=== PATIENT | female | born 1970 | race American Indian/Alaskan Native ===

== ENCOUNTER 2019-01-13 09:48 | Emergency (ER) | payer MEDICARE ==
[2019-01-13 10:09] VITALS: BP 111/76
[2019-01-13] MEDS ORDERED: IBUPROFEN PO ONE (10:27)
--- NOTE | 2019-01-13 11:13 | XRay Report ---
LEFT FOOT 3 VIEW(S) INDICATION / CLINICAL INFORMATION: pain after a fall COMPARISON: None available. FINDINGS: BONES / JOINT(S): No acute fracture or subluxation. Old, healed fracture of the distal 5th metatarsal . SOFT TISSUES: No significant abnormality. ADDITIONAL FINDINGS: None. Signer Name: Anitha Kumar MD Signed: 01/13/2019 11:08 AM Workstation Name: [id number]
--- NOTE | 2019-01-13 11:15 | XRay Report ---
LEFT ANKLE 3 VIEW(S) INDICATION / CLINICAL INFORMATION: pain after fall COMPARISON: None available. FINDINGS: BONES / JOINT(S): No acute fracture or subluxation. Old, healed fractures of the distal left tibia an d fibula. No joint effusion. SOFT TISSUES: Mild lateral ankle soft tissue swelling. ADDITIONAL FINDINGS: None. Signer Name: Anitha Kumar MD Signed: 01/13/2019 11:10 AM Workstation Name: [id number]
--- NOTE | 2019-01-13 11:15 | XRay Report ---
LEFT KNEE 3 VIEW(S) INDICATION / CLINICAL INFORMATION: pain after fall COMPARISON: None available. FINDINGS: BONES / JOINT(S): No acute fracture or subluxation. No significant arthritis. No significant joint ef fusion. SOFT TISSUES: Mild prepatellar soft tissue swelling. ADDITIONAL FINDINGS: None. Signer Name: Anitha Kumar MD Signed: 01/13/2019 11:11 AM Workstation Name: [id number]
--- NOTE | 2019-01-13 11:48 | Emergency Department Report ---
ED Extremity Problem HPI - General Chief complaint: Fall Stated complaint: FALL Time Seen by Provider: 01/13/19 10:14 Source: patient Mode of arrival: Ambulatory Limitations: Physical Limitation - History of Present Illness Initial comments: Patient is a 48-year-old female who suffered a fall earlier today. Patient tripped and fell and her left leg got caught underneath her. Patient is complaining of left knee ankle and foot pain. Patient had a walking boot from previous injury and she put this on her which will allow her to walk. Patient states pain is 7 out of 10 in severity. There is no head injury and loss consciousness. Severity scale (0 -10): 8 - Related Data Previous Rx's Medication Instructions Recorded Last Taken Type Ibuprofen [Motrin 600 MG tab] 600 mg PO Q8H PRN #20 tablet 01/13/19 Unknown Rx traMADol [Ultram] 50 mg PO Q6HR PRN #12 tablet 01/13/19 Unknown Rx Allergies Allergy/AdvReac Type Severity Reaction Status Date / Time No Known Allergies Allergy Unverified 01/13/19 10:10 ED Review of Systems ROS: Stated complaint: FALL Other details as noted in HPI Comment: All other systems reviewed and negative ED Past Medical Hx - Past Medical History Hx Hypertension: Yes Hx Diabetes: Yes Additional medical history: Jad dis., High cholesterol - Surgical History Hx Appendectomy: Yes Additional Surgical History: Pituary gland, hysterectomy, open heart - Social History Smoking Status: Never Smoker Substance Use Type: Alcohol - Medications Home Medications: Home Medications Medication Instructions Recorded Confirmed Last Taken Type Ibuprofen [Motrin 600 MG tab] 600 mg PO Q8H PRN #20 tablet 01/13/19 Unknown Rx traMADol [Ultram] 50 mg PO Q6HR PRN #12 tablet 01/13/19 Unknown Rx ED Physical Exam - General Limitations: Physical Limitation General appearance: alert, in no apparent distress - Head Head exam: Present: atraumatic, normocephalic - Eye Eye exam: Present: normal appearance - ENT ENT exam: Present: mucous membranes moist - Neck Neck exam: Present: normal inspection - Respiratory Respiratory exam: Absent: respiratory distress, wheezes, rales, rhonchi - Cardiovascular Cardiovascular Exam: Absent: systolic murmur, diastolic murmur, rubs, gallop - GI/Abdominal GI/Abdominal exam: Present: soft, normal bowel sounds. Absent: distended, tenderness, guarding, rebound - Extremities Exam Extremities exam: Present: normal inspection, tenderness, joint swelling (left ankle and left knee). Absent: full ROM (secondary to pain) - Back Exam Back exam: Present: normal inspection - Neurological Exam Neurological exam: Present: alert, oriented X3 - Psychiatric Psychiatric exam: Present: normal affect, normal mood - Skin Skin exam: Present: warm, dry, intact, normal color. Absent: rash ED Course Vital Signs 01/13/19 01/13/19 10:03 10:36 Temperature 98.3 F Pulse Rate 86 Respiratory 18 18 Rate Blood Pressure 111/76 O2 Sat by Pulse 96 Oximetry ED Medical Decision Making - Radiology Data Ordering Physician: LANDY CHENEY MD Date of Service: 01/13/19 Procedure(s): XR knee 3V LT Accession Number(s): [id number] cc: LANDY CHENEY MD Fluoro Time In Minutes: LEFT KNEE 3 VIEW(S) INDICATION / CLINICAL INFORMATION: pain after fall COMPARISON: None available. FINDINGS: BONES / JOINT(S): No acute fracture or subluxation. No significant arthritis. No significant joint effusion. SOFT TISSUES: Mild prepatellar soft tissue swelling. ADDITIONAL FINDINGS: None. Signer Name: Anitha Kumar MD Signed: 01/13/2019 11:11 AM Workstation Name: [id number] Transcribed By: DT Dictated By: Kun Kumar MD Electronically Authenticated By: Kun Kumar MD Signed Date/Time: 01/13/[address] [place] [address] [address] [place] [address] XRay Report Signed Patient: ALMITA MOROCHO MR#: [id number] : 1970 Acct:[id number] Age/Sex: 48 / F ADM Date: 01/13/19 Loc: ED Attending Dr: Ordering Physician: LANDY CHENEY MD Date of Service: 01/13/19 Procedure(s): XR foot 3+V LT Accession Number(s): [id number] cc: LANDY CHENEY MD Fluoro Time In Minutes: LEFT FOOT 3 VIEW(S) INDICATION / CLINICAL INFORMATION: pain after a fall COMPARISON: None available. FINDINGS: BONES / JOINT(S): No acute fracture or subluxation. Old, healed fracture of the distal 5th metatarsal. SOFT TISSUES: No significant abnormality. ADDITIONAL FINDINGS: None. Signer Name: Anitha Kumar MD Signed: 01/13/2019 11:08 AM Workstation Name: [id number] Transcribed By: DT Dictated By: Kun Kumar MD Electronically Authenticated By: Kun Kumar MD Signed Date/Time: 01/13/19 1108 Ordering Physician: LANDY CHENEY MD Date of Service: 01/13/19 Procedure(s): XR ankle 3+V LT Accession Number(s): [id number] cc: LANDY CHENEY MD Fluoro Time In Minutes: LEFT ANKLE 3 VIEW(S) INDICATION / CLINICAL INFORMATION: pain after fall COMPARISON: None available. FINDINGS: BONES / JOINT(S): No acute fracture or subluxation. Old, healed fractures of the distal left tibia and fibula. No joint effusion. SOFT TISSUES: Mild lateral ankle soft tissue swelling. ADDITIONAL FINDINGS: None. Signer Name: Anitha Kumar MD Signed: 01/13/2019 11:10 AM Workstation Name: [id number] Transcribed By: DT Dictated By: Kun Kumar MD Electronically Authenticated By: Kun Kumar MD Signed Date/Time: 01/13/19 1110 - Medical Decision Making No acute fractures were seen. Patient did have soft tissue swelling to the left knee and ankle indicative of a sprain. Patient will continue with the walking boot but both these joints and also been Raf wrap. Patient will have follow-up with Dr. Garcia with orthopedics was given pain meds patient be discharged home. Critical care attestation.: If time is entered above; I have spent that time in minutes in the direct care of this critically ill patient, excluding procedure time. ED Disposition Clinical Impression: Knee sprain Qualifiers: Encounter type: initial encounter Involved ligament of knee: unspecified ligament Laterality: left Qualified Code(s): S83.92XA - Sprain of unspecified site of left knee, initial encounter Ankle sprain Qualifiers: Encounter type: initial encounter Involved ligament of ankle: unspecified ligament Laterality: left Qualified Code(s): S93.402A - Sprain of unspecified ligament of left ankle, initial encounter Disposition: -01 TO HOME OR SELFCARE Is pt being admited?: No Does the pt Need Aspirin: No Condition: Stable Instructions: Ankle Sprain (ED), Knee Sprain (ED) Referrals: TIFFANY GARCIA MD [Staff Physician] - 7-10 days Time of Disposition: 11:49
== END 2019-01-13 12:06 | disposition home or self-care (01) ==
LOC: ED 09:48
DX: S83.92XA Sprain of unspecified site of left knee, initial encounter (principal); S93.402A Sprain of unspecified ligament of left ankle, initial encounter; I10 Essential (primary) hypertension; E11.9 Type 2 diabetes mellitus without complications; E78.00 Pure hypercholesterolemia, unspecified; Z90.49 Acquired absence of other specified parts of digestive tract; Z90.710 Acquired absence of both cervix and uterus; W01.198A Fall on same level from slipping, tripping and stumbling with subsequent striking against other object, initial encounter; Y93.89 Activity, other specified; Y92.89 Other specified places as the place of occurrence of the external cause; Y99.8 Other external cause status
CPT/HCPCS: 99283

== ENCOUNTER 2019-12-02 11:35 | Emergency (ER) | payer MEDICARE ==
--- NOTE | 2019-12-02 14:26 | Event Note ---
ED Screening Note Date of service: 12/02/19 Time: 14:24 ED Screening Note: Pt complains of dizziness, shortness of breath, and nausea intermittently x 2 months worsened last night room spinning dizziness denies CARBALLO, numbness, tingling 1 episodes of vomiting This initial assessment/diagnostic orders/clinical plan/treatment(s) is/are subject to change based on patients health status, clinical progression and re- assessment by fellow clinical providers in the ED. Further treatment and workup at subsequent clinical providers discretion. Patient/guardian urged not to elope from the ED as their condition may be serious if not clinically assessed and managed. Initial orders include: EKG labs CXR
--- NOTE | 2019-12-02 15:28 | Cat Scan Report ---
CT HEAD WITHOUT CONTRAST INDICATION / CLINICAL INFORMATION: dizziness, hx of pituitary tumor. TECHNIQUE: All CT scans at this location are performed using CT dose reduction for ALARA by means of automated e xposure control. COMPARISON: None available. FINDINGS: HEMORRHAGE: No evidence of intracranial hemorrhage or extra-axial fluid collection. EXTRA-AXIAL SPACES: Cortical sulci, sylvian fissures and basilar cisterns have an unremarkable appear ance. VENTRICULAR SYSTEM: The ventricular system is of normal size and configuration. CEREBRAL PARENCHYMA: No areas of abnormal brain parenchymal attenuation are identified. There is no i ndication of recent infarction. MIDLINE SHIFT OR HERNIATION: There is no mass effect. CEREBELLUM / BRAINSTEM: Brainstem and cerebellum have an unremarkable appearance. MIDLINE STRUCTURES:No abnormalities of the pituitary gland or pineal region are identified. Patient h as a history of pituitary tumor but there is no indication of pituitary macroadenoma on this head CT examination. INTRACRANIAL VESSELS:No abnormalities are identified on this noncontrast head CT. ORBITS: visualized portions of the orbits have an unremarkable appearance. SOFT TISSUES of HEAD: No significant abnormality. CALVARIUM: Evaluation of bone windows reveals no abnormalities. PARANASAL SINUSES / MASTOID AIR CELLS: Paranasal sinuses are free from inflammatory mucosal disease. Mastoid air cells are normally pneumatized. ADDITIONAL FINDINGS: None. IMPRESSION: 1. No abnormality on head CT without contrast. Signer Name: Milton Trejo MD Signed: 12/02/2019 3:24 PM Workstation Name: [id number]
[2019-12-02 15:29] LABS: Basophils % (Auto) 0.7 % (0.0-1.8); Eosinophils # (Auto) 0.2 K/mm3 (0.0-0.4); Eosinophils % (Auto) 2.7 % (0.0-4.3); Hematocrit 45.9 % (30.3-42.9); Hemoglobin 14.9 gm/dl (10.1-14.3); Lymphocytes # (Auto) 1.7 K/mm3 (1.2-5.4); Lymphocytes % (Auto) 26.9 % (13.4-35.0); Mean Corpuscular HGB Conc 33 % (30-34); Mean Corpuscular Volume 87 fl (79-97); Monocytes # (Auto) 0.4 K/mm3 (0.0-0.8); Platelet Count 254 K/mm3 (140-440); Red Cell Distribution Width 14.6 % (13.2-15.2)
[2019-12-02 16:12] LABS: Alanine Aminotransferase 9 units/L (7-56); BUN/Creatinine Ratio 12; Blood Urea Nitrogen 18 mg/dL (7-17); Calcium 9.4 mg/dL (8.4-10.2)
[2019-12-02 16:13] LABS: Albumin 4.2 g/dL (3.9-5); Hemolysis Index 12
--- NOTE | 2019-12-02 16:27 | XRay Report ---
CHEST 1 VIEW INDICATION: chest pain. COMPARISON: None. FINDINGS: Support devices: None. Heart: Within normal limits. Status post previous median sternotomy and valve replacement. Lungs/Pleura: No acute air space or interstitial disease. Additional findings: None. IMPRESSION: No acute abnormality. Signer Name: David Hyde MD Signed: 12/02/2019 4:23 PM Workstation Name: [id number]
[2019-12-02 19:54] VITALS: BP 140/91
[2019-12-02 20:16] LABS: Bilirubin,Urine NEG (Negative); Blood,Urine SM (Negative); Color,Urine Amber (Yellow); Mucus,Urine 1+ /HPF
--- NOTE | 2019-12-02 21:12 | Emergency Department Report ---
HPI - General Chief Complaint: Dizziness Time Seen by Provider: 12/02/19 20:20 - HPI HPI: 49-year-old female presents to the emergency department with complaints of some lightheadedness/dizziness, shortness of breath, nausea and vomiting and back pain. Patient says that she woke up in the middle of the night last night with a room spinning sensation but also felt as if she was going to pass out. She also began having some intermittent shortness of breath. The patient was able to go back to sleep but then once again woke up this morning with more of a lightheadedness as if she was going to pass out. She once again began having the intermittent shortness of breath. Now, upon presentation to the emergency department, the patient says that she has generalized fatigue and weakness, and also has some lower back pain. She had one episode of nausea with vomiting earlier today. She has taken her normal home medications but otherwise has not taken anything for symptoms prior to presentation. Patient has a past medical history of diabetes, hypertension, hypothyroidism, high cholesterol and history of Jad's disease. No recent travel or sick contacts at home. She denies any fever, chest pain, headache, vision change, slurred speech, numbness. Her primary care physician is a Dr. Velarde. ED Past Medical Hx - Past Medical History Previous Medical History?: Yes Hx Hypertension: Yes Hx Diabetes: Yes Additional medical history: Jad dis., High cholesterol, hypothyroidism,transverse Myelitis - Surgical History Hx Open Heart Surgery: Yes Hx Appendectomy: Yes Additional Surgical History: Pituary gland, hysterectomy, open heart - Social History Smoking Status: Never Smoker Substance Use Type: None - Medications Home Medications: Home Medications Medication Instructions Recorded Confirmed Last Taken Type Ibuprofen [Motrin 600 MG tab] 600 mg PO Q8H PRN #20 tablet 01/13/19 Unknown Rx traMADoL [Ultram] 50 mg PO Q6HR PRN #12 tablet 01/13/19 Unknown Rx Meclizine [Antivert] 25 mg PO TID PRN #15 tablet 12/02/19 Unknown Rx ED Review of Systems ROS: Stated complaint: DIZZY Other details as noted in HPI Comment: All other systems reviewed and negative Constitutional: denies: chills, fever Eyes: denies: eye pain, vision change ENT: denies: ear pain, throat pain Respiratory: shortness of breath. denies: wheezing Cardiovascular: denies: chest pain, palpitations Gastrointestinal: nausea, vomiting. denies: abdominal pain Genitourinary: denies: dysuria, discharge Musculoskeletal: back pain. denies: joint swelling Skin: denies: rash, lesions Neurological: denies: headache, numbness Physical Exam - Physical Exam Vital Signs: Vital Signs 12/02/19 12/02/19 12/02/19 11:44 14:25 17:44 Temperature 97.4 F L 97.4 F L 98.0 F Pulse Rate 77 78 68 Respiratory 18 18 Rate Blood Pressure 146/92 146/92 Blood Pressure 148/88 [Right] O2 Sat by Pulse 96 97 Oximetry 12/02/19 12/02/19 12/02/19 17:45 19:52 19:53 Temperature 98.0 F 98.0 F 98.0 F Pulse Rate 70 70 Respiratory 18 18 Rate Blood Pressure 146/87 140/91 Blood Pressure [Right] O2 Sat by Pulse 100 100 Oximetry Physical Exam: GENERAL: The patient is well-developed well-nourished. HENT: Normocephalic. Atraumatic. Patient has moist mucous membranes. EYES: Extraocular motions are intact. Pupils equal reactive to light bilaterally. No nystagmus. NECK: Supple. Trachea is midline. CHEST/LUNGS: Clear to auscultation. There is no respiratory distress noted. HEART/CARDIOVASCULAR: Regular. There is no tachycardia. ABDOMEN: Abdomen is soft, nontender. Patient has normal bowel sounds. There is no abdominal distention. SKIN: Skin is warm and dry. NEURO: The patient is awake, alert, and oriented. The patient is cooperative. The patient has no focal neurologic deficits. Normal speech. Cranial nerves II through XII grossly intact. No pronator drift. No dysmetria. No facial asymmetry. MUSCULOSKELETAL: There is no tenderness or deformity. There is no limitation range of motion. There is no evidence of acute injury. ED Course Vital Signs 12/02/19 12/02/19 12/02/19 11:44 14:25 17:44 Temperature 97.4 F L 97.4 F L 98.0 F Pulse Rate 77 78 68 Respiratory 18 18 Rate Blood Pressure 146/92 146/92 Blood Pressure 148/88 [Right] O2 Sat by Pulse 96 97 Oximetry 12/02/19 12/02/19 12/02/19 17:45 19:52 19:53 Temperature 98.0 F 98.0 F 98.0 F Pulse Rate 70 70 Respiratory 18 18 Rate Blood Pressure 146/87 140/91 Blood Pressure [Right] O2 Sat by Pulse 100 100 Oximetry ED Medical Decision Making - Lab Data Result diagrams: 12/02/19 15:13 12/02/19 15:13 - EKG Data -: EKG Interpreted by Me EKG shows normal: sinus rhythm, axis, intervals, QRS complexes, ST-T waves Rate: normal - EKG Data When compared to previous EKG there are: previous EKG unavailable Interpretation: normal EKG - Radiology Data Radiology results: report reviewed, image reviewed interpreted by me: Chest x-ray does not show any acute process. There are no pleural effusions, obvious pneumonia and there is no pneumothorax. CT HEAD WITHOUT CONTRAST INDICATION / CLINICAL INFORMATION: dizziness, hx of pituitary tumor. TECHNIQUE: All CT scans at this location are performed using CT dose reduction for ALARA by means of automated exposure control. COMPARISON: None available. FINDINGS: HEMORRHAGE: No evidence of intracranial hemorrhage or extra-axial fluid collection. EXTRA-AXIAL SPACES: Cortical sulci, sylvian fissures and basilar cisterns have an unremarkable appearance. VENTRICULAR SYSTEM: The ventricular system is of normal size and configuration. CEREBRAL PARENCHYMA: No areas of abnormal brain parenchymal attenuation are identified. There is no indication of recent infarction. MIDLINE SHIFT OR HERNIATION: There is no mass effect. CEREBELLUM / BRAINSTEM: Brainstem and cerebellum have an unremarkable appearance. MIDLINE STRUCTURES:No abnormalities of the pituitary gland or pineal region are identified. Patient has a history of pituitary tumor but there is no indication of pituitary macroadenoma on this head CT ex amination. INTRACRANIAL VESSELS:No abnormalities are identified on this noncontrast head CT. ORBITS: visualized portions of the orbits have an unremarkable appearance. SOFT TISSUES of HEAD: No significant abnormality. CALVARIUM: Evaluation of bone windows reveals no abnormalities. PARANASAL SINUSES / MASTOID AIR CELLS: Paranasal sinuses are free from inflammatory mucosal disease. Mastoid air cells are normally pneumatized. ADDITIONAL FINDINGS: None. IMPRESSION: 1. No abnormality on head CT without contrast. - Medical Decision Making This patient presents to the emergency department with a complaint of having some dizziness and lightheadedness. At one point it is more like vertigo and another it is more like near syncope. At the time of my examination the patient does not have any focal, motor or sensory deficits and her cranial nerves are intact. Patient had a CT scan of the head without contrast to triage that did not show any bleed, shift, mass, ischemia, or any other acute process. Chest x- ray also does not show any pneumonia, pleural effusions, pneumothorax, or any acute process. EKG does not show any morphology consistent with ST elevation [place] or any significant dysrhythmia. Patient's labs have been mostly unremarkable including CBC, metabolic panel, negative troponin, thyroid function and urinalysis, except for some mild renal sufficiency with a GFR of about 44. The patient's vital signs been stable throughout her ED course. She was reevaluated multiple times over multiple hours and the patient says that her only complaint at this time is fatigue. The patient got up and ambulated throughout the emergency department and says that she is walking at her baseline ability. For all these reasons the patient appears safe for discharge home at this time. She has been instructed to follow-up with her primary care physician, as well as returning to the emergency department immediately with any return or worsening of her symptoms, or with any acute distress. She has been given a prescription for Antivert for any of the room spinning vertigo-like symptoms. Critical Care Time: No Critical care attestation.: If time is entered above; I have spent that time in minutes in the direct care of this critically ill patient, excluding procedure time. ED Disposition Clinical Impression: Dizziness, Vertigo, Renal insufficiency, mild Fatigue Qualifiers: Fatigue type: unspecified Qualified Code(s): R53.83 - Other fatigue Disposition: DC- TO HOME OR SELFCARE Is pt being admited?: No Condition: Stable Instructions: Vertigo (ED), Lightheadedness (ED), Dizziness (ED), Fatigue (ED), Impaired Kidney Function (ED) Additional Instructions: Please follow-up with your primary care physician in the next few days. Return to the emergency department with any worsening of your symptoms or any acute distress. Prescriptions: Meclizine [Antivert] 25 mg PO TID PRN #15 tablet PRN Reason: Vertigo Referrals: BRIAN CRUZ MD [Primary Care Provider] - 2-3 Days Time of Disposition: 22:02
[2019-12-02 21:19] LABS: INR 1.24 (0.87-1.13)
[2019-12-02 21:53] LABS: Free T4 (Free Thyroxine) 0.73 ng/dL (0.76-1.46)
== END 2019-12-02 22:17 | disposition home or self-care (01) ==
LOC: ED 11:35
DX: R42 Dizziness and giddiness (principal); N28.9 Disorder of kidney and ureter, unspecified; R53.83 Other fatigue; I10 Essential (primary) hypertension; E11.9 Type 2 diabetes mellitus without complications; Z90.49 Acquired absence of other specified parts of digestive tract; Z98.890 Other specified postprocedural states; Z90.710 Acquired absence of both cervix and uterus; Z79.1 Long term (current) use of non-steroidal anti-inflammatories (NSAID); Z79.899 Other long term (current) drug therapy
CPT/HCPCS: 36415; 70450; 71045; 80053; 81001; 82962; 84439; 84443; 84484; 85025; 85610; 93005